=== PATIENT | female | born 1985 | race Two or more races ===

== ENCOUNTER 2025-07-21 14:10 | Emergency (ER) | payer OTHER, SELFPAY ==
[2025-07-21 14:15] VITALS: BP 117/62; PULSE 67; RESP 14; TEMP 36.4; O2SAT 99; BMI 26.2
--- NOTE | 2025-07-21 14:48 | EDS_ITS ---
HPI HPI - Female History of Present Illness Chief Complaint: Narrative Narrative: History and physical mildly limited secondary to language barrier as patient only speaks [place] Creole. 40-year-old female presents with positive home test that she took today. This would make her a . She states she has history of irregular menses and her last menstrual period was on May 20, and she did not have any vaginal bleeding for the month of June. It being early July, she has not had her./Menses as of yet either. She relates history that all throughout June, whenever she would eat she would become nauseated. However she is not here for that and states that she wanted to confirm her which was determined by home test. She denies any current vaginal bleeding. No pelvic pain. PFSH PFSH Medical History no medical history Home Medications ?Medication ?Instructions ?Recorded ?Last Taken ?Type NK 07/21/25 Unknown History Allergy/AdvReac Type Severity Reaction Status Date / Time No Known Allergies Allergy Verified 07/21/25 14:23 Family History no significant family his Surgical History no surgical history Social History household members: spouse Smoking Status: Never smoker ROS ROS ED ROS Narrative Review of systems positive for 1 month of not feeling well with intermittent abdominal pain, associated with nausea. No fevers or chills. History of irregular menses. Last menstrual period 05/20/2025, uses approximately 2 months ago. No vaginal bleeding or pelvic pain. EXAM Physical Exam Narrative Exam Narrative: Afebrile. Vital signs noted. Nontoxic-appearing. Cardiovascular examination reveals regular rate and rhythm. Lungs are clear to auscultation bilaterally. Abdomen is soft and nontender with positive bowel sounds, no guarding or rebound. No tenderness in suprapubic area. Neurological examination nonfocal, nonlateralizing. No pedal edema. Const Vital Signs: 07/21/25 14:15 Temperature 97.5 F L Temperature Source Temporal Pulse Rate 67 Respiratory Rate 14 Blood Pressure 117/62 Blood Pressure Mean 80 Pulse Ox 99 Oxygen Delivery Method Room Air MDM MDM MDM Narrative Medical decision making narrative: Differential diagnosis includes but not limited to intrauterine versus ectopic versus irregular menses. She could have also had a false positive home test. I reviewed her laboratory work and she has normal white count of 5.3 with hemoglobin 14.1, hematocrit 40.8, platelet count 216 3. CMP is grossly unremarkable except for creatinine low at 0.54, LFTs grossly normal. Serum test is positive. Quantitative measurement appropriately elevated at 189,096. Urinalysis negative for infection. I do not feel antibiotics are indicated. Initially, the patient wanted to sign out AMA when the quantitative measurement had not returned nor the ultrasound. However, she changed her mind. I reviewed the radiology report of the ultrasound which shows a live intrauterine at 10 weeks gestation. At this point in time she will start [id number] vitamins and she was referred to Dr. Consuelo Nicholson who is on-call for no doc. I did discuss the patient with her as well. As she is not having pain or vaginal bleeding, return instructions were reviewed. Patient is comfortable with discharge. Disposition is discharged home in stable condition. History & Record Review Discussion w/independent historian: Patient Additional record(s) reviewed:: No prior records (No prior ED visits) Lab Data Attestation: I reviewed the patient's lab results. Labs: Laboratory Results - last 24 hr 07/21/25 07/21/25 07/21/25 15:14 15:17 15:31 WBC 5.3 RBC 4.69 Hgb 14.1 Hct 40.8 MCV 87.0 MCH 30.1 MCHC 34.6 RDW Std Deviation 40.1 RDW Coeff of Moustapha 12.6 Plt Count 263 MPV 10.3 Immature Gran % (Auto) 0.200 Neut % (Auto) 65.6 Lymph % (Auto) 26.6 [place] % (Auto) 6.4 Eos % (Auto) 0.8 Baso % (Auto) 0.4 Absolute Neuts (auto) 3.5 Absolute Lymphs (auto) 1.41 Nucleated RBC % 0 Sodium 136 Potassium 3.9 Chloride 104 Carbon Dioxide 21.2 Anion Gap 11 BUN 4 Creatinine 0.54 L Estim Creat Clear Calc 147.80 Est GFR (MDRD) Non-Af 121 BUN/Creatinine Ratio 8.1 L Glucose 84 Calcium 9.3 Total Bilirubin 0.41 AST 19 ALT 16 Alkaline Phosphatase 60 Total Protein 7.2 Albumin 4.1 Globulin 3.1 Albumin/Globulin Ratio 1.3 HCG, Quant 108328 H Serum , Qual POSITIVE Urine Color Straw Urine Clarity Sl. Cloudy Urine pH 6.0 Ur Specific [place] 1.010 Urine Protein Negative Urine Glucose (UA) Normal Urine Ketones 15 H Urine Occult Blood Negative Urine Nitrite Negative Urine Bilirubin Negative Urine Urobilinogen Normal Ur Leukocyte Esterase Negative Urine RBC 0-5 SEEN Urine WBC 0-5 SEEN Ur Squamous Epith Cells 0-5 SEEN Urine Bacteria 0 SEEN Urine Mucus 0 SEEN Blood Type AB POSITIVE Radiography Diagnostic Testing: Clinical Impression(s) from Imaging Studies Obstetrics Ultrasound 07/21/25 16:24 IMPRESSION: Live intrauterine with a gestational age of 10 weeks 0 day. The gestational age based on the LMP is: 8 with 6 days. The estimated sonographic delivery date is: 02/24/2026. Complete anatomical assessment should be performed at 19-20 wks. Reading Location: [facility] Discharge Plan Triage Chief Complaint: ED Provider: Chapin Haynes Dx/Rx/DC Orders Clinical Impression: First trimester , Encounter for medical screening examination Instructions: : Weeks 10 to 14, ED Prescriptions: No Action NK Primary Care Provider: Care Physician,No Primary Referrals: Consuelo Nicholson MD [Med Staff - Active Staff] - 1-2 Weeks Care Physician,No Primary [Primary Care Provider] - Activity Restrictions/Additional Instructions: Return to the emergency department with pelvic pain, vaginal bleeding, or any new or worsening symptoms. Start [id number] vitamins. Print Language: [place] Creole Disposition Disposition: Home, Self Care
[2025-07-21 15:12] VITALS: BMI 29.4
--- NOTE | 2025-07-21 15:15 | ED.RN ---
PT DECLINED CHANGING INTO GOWN AT THIS TIME.
[2025-07-21 15:31] LABS: Hematocrit 40.8 % (37-47); Hemoglobin 14.1 g/dL (12.0-15.0); Immature Granulocytes Count 0.010 X10^3/uL (0.0-0.0); Mean Corp Hgb Conc 34.6 g/dL (32-36); Mean Corpuscular Volume 87.0 fL (81-99); Mean Platelet Vol. 10.3 fl (6.2-12.0); NRBC Flagged by Analyzer 0 % (0-5); Platelet Count 263 K/mm3 (150-450); RBC Distribution Width CV 12.6 % (11.6-14.6); RBC Distribution Width SD 40.1 fl (35.1-43.9); Red Blood Count 4.69 M/mm3 (4.2-5.4); White Blood Count 5.3 K/mm3 (4.4-11.0)
[2025-07-21 15:36] LABS: Mucous, Urine 0 SEEN /hpf (<or=2+)
[2025-07-21 15:43] LABS: Internal QC Validated? YES +Cl - CLEAR BKGD
[2025-07-21 15:46] LABS: Pregnancy, Serum, hCG Quali. POSITIVE Negative; Record Kit Lot#, Serum Preg. 947241
--- NOTE | 2025-07-21 15:46 | ED.RN ---
Critical positive serum preg received from lab. Physician notified.
[2025-07-21 16:02] LABS: AST(SGOT) 19 U/L (<=31); Alanine Aminotransfer ALT/SGPT 16 U/L (<=34); Albumin, Serum 4.1 g/dL (3.5-5.0); Alkaline Phosphatase 60 U/L (35-104); Anion Gap 11 (5-15); BUN 4 mg/dL (4-19); BUN/Creat Ratio 8.1 RATIO (10-20); Calcium,Total 9.3 mg/dL (7.6-11.0); Carbon Dioxide 21.2 mmol/L (21.0-32.0); Chloride 104 mmol/L (98-108); Estimated Creatinine Clearance 147.80 ml/min (50-250); Globulin 3.1 g/dL (2.2-4.2); Glucose 84 mg/dL (70-99); Potassium 3.9 mmol/L (3.3-5.1)
--- NOTE | 2025-07-21 16:24 | US_ITS ---
PROCEDURE: TRANSVAGINAL W/PREG US 07/21/2025 REASON FOR EXAM: PELVIC PAIN POS PREG TEST TECHNIQUE: Procedure Code: USTVAGP Modality: US Procedure: TRANSVAGINAL W/PREG US COMPARISON: None available FINDINGS The uterus measures 11.4 x 7.4 x 8.0 cm. A gestational sac is identified within the uterus. The mean sac diameter measures 4.24 cm and corresponds to a gestational age of 9 weeks 5 days within this gestational sac, a pole and yolk sac are identified. The crown rump length measures 34.9 mm and corresponds to a gestational age of 10 weeks 1 day. Real-time examination confirms cardiac activity with a heart rate of 159 bpm. The cervix is closed obscured Both ovaries are not visualized. No adnexal masses are seen. There is no fluid in the cul-de-sac. US/Transvaginal w/Preg US IMPRESSION: Live intrauterine with a gestational age of 10 weeks 0 day. The gestational age based on the LMP is: 8 with 6 days. The estimated sonographic delivery date is: 02/24/2026. Complete anatomical assessment should be performed at 19-20 wks. Reading Location: [facility]
[2025-07-21 17:09] LABS: Color, Urine Straw (Yellow); Glucose, Dipstick Normal (Normal); Ketone-Dipstick 15 mg/dl (Negative); Leukocyte Esterase-Dipstick Negative /ul (Negative); Nitrite-Dipstick Negative (Negative); Occult Blood-Urine Negative /ul (Negative); Protein-Dipstick Negative (Negative); Specific Gravity, Urine 1.010 (1.002-1.030); Urine Bilirubin Dipstick Negative (Negative)
[2025-07-21 17:22] LABS: Red Blood Cells-Urine 0-5 SEEN /hpf (0-5); Squamous Epithelial Cells - UA 0-5 SEEN /hpf (5-10)
[2025-07-21 17:53] LABS: hCG Titer Quant., Serum 189096 mIU/mL (<9 non-preg)
[2025-07-21 21:07] VITALS: BP 101/72; PULSE 62; RESP 16; TEMP 37.1; O2SAT 100
== END 2025-07-21 21:17 | disposition home or self-care (01) ==
PROVIDERS: Emergency Provider Emergency Medicine; Visit Provider Emergency Medicine
DX: Z32.01 Encounter for pregnancy test, result positive (principal); Z60.3 Acculturation difficulty
CPT/HCPCS: 76817; 80053; 81001; 84702; 84703; 85025; 86900; 86901; 99283; A4216